=== PATIENT | male | born 1965 | race Caucasian/White ===

== ENCOUNTER → 2020-06-07 10:52 | Outpatient (BNVA) | payer OTHER, SELFPAY | PROVIDERS: PCP Internal Medicine; Visit Provider Dietitian, Registered ==

== ENCOUNTER → 2020-07-19 11:54 | Outpatient (BNVA) | payer OTHER, SELFPAY | PROVIDERS: PCP Internal Medicine; Visit Provider Dietitian, Registered | DX: E66.9 Obesity, unspecified (principal); Z68.41 Body mass index [BMI] 40.0-44.9, adult | CPT/HCPCS: 97803 ==

== ENCOUNTER 2021-05-24 09:06 | Outpatient (REF) | payer OTHER, SELFPAY ==
[2021-05-24 11:47] LABS: Folate > 20.0 ng/mL (> or = 4.0)
[2021-05-25 08:57] LABS: Lyme Abs Screen <0.90 index
[2021-05-26 16:52] LABS: IgA 323 mg/dL (47-310); IgG 1103 mg/dL (600-1640); IgM 58 mg/dL (50-300)
== END 2021-05-24 09:07 | disposition home or self-care (01) ==
LOC: HO.10HDL 09:06
PROVIDERS: Visit Provider Psychiatry & Neurology Neurology
DX: G62.9 Polyneuropathy, unspecified (principal)
CPT/HCPCS: 36415; 82746; 82784; 86334; 86617; 86618